=== PATIENT | male | born 1990 | race Caucasian/White ===

== ENCOUNTER 2017-04-01 21:19 | Emergency (ER) | payer OTHER ==
[2017-04-01] MEDS ORDERED: Sodium Chloride 0.9% 1,000 ML IV ONE (21:59)
[2017-04-01] MEDS ORDERED: Alum Hydroxide/Mag Hydroxide 30 ML, Lidocaine 2% 30 ML PO ONE ×2 (22:01)
[2017-04-01] MEDS ORDERED: Ondansetron 4 MG/2 ML SDV IVPUSH ONE (22:03)
--- NOTE | 2017-04-01 22:08 | EDM.PDOC ---
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, not around anyone who has been ill Right sided chest pain Pain Score (Numeric/FACES): 5 - Related Data Allergies Allergy/AdvReac Type Severity Reaction Status Date / Time No Known Allergies Allergy Verified 04/01/17 21:47 Home Meds: Home Meds NK [No Known Home Meds] 03/03/13 [History] Past Medical History Respiratory History: Reports: Asthma Musculoskeletal History: Reports: Fracture Social & Family History - Tobacco Use Smoking Status *Q: Current Every Day Smoker Years of Tobacco use: 8 Packs/Tins Daily: 1 Second Hand Smoke Exposure: Yes - Caffeine Use Caffeine Use: Reports: Soda - Alcohol Use Days Per Week of Alcohol Use: 0 - Recreational Drug Use Recreational Drug Use: No ED ROS GENERAL - Review of Systems Review Of Systems: See Below Constitutional: Reports: Decreased Appetite. Denies: Fever, Chills, Diaphoresis HEENT: Reports: No Symptoms Respiratory: Reports: No Symptoms Cardiovascular: Reports: No Symptoms Endocrine: Reports: No Symptoms GI/Abdominal: Reports: Abdominal Pain, Diarrhea, Nausea, Vomiting : Reports: No Symptoms Musculoskeletal: Reports: No Symptoms Skin: Reports: No Symptoms Neurological: Reports: No Symptoms Psychiatric: Reports: No Symptoms Hematologic/Lymphatic: Reports: No Symptoms Immunologic: Reports: No Symptoms ED EXAM, GI/ABD - Physical Exam Exam: See Below Exam Limited By: No Limitations General Appearance: Alert, WD/WN, No Apparent Distress Ears: Normal External Exam, Normal Canal, Hearing Grossly Normal Nose: Normal Inspection, Normal Mucosa, No Blood Throat/Mouth: Normal Inspection, Normal Lips, Normal Teeth, Normal Gums, Normal Oropharynx, Normal Voice, No Airway Compromise, Other (cheeks flushed) Head: Atraumatic, Normocephalic Neck: Normal Inspection, Supple, Non-Tender, Full Range of Motion Respiratory/Chest: No Respiratory Distress, Lungs Clear, Normal Breath Sounds, No Accessory Muscle Use, Chest Non-Tender Cardiovascular: Regular Rate, Rhythm, No Edema, No Gallop, No Murmur, No Rub GI/Abdominal Exam: Normal Bowel Sounds, Soft, Non-Tender, No Organomegaly, No Distention, No Mass Back Exam: Normal Inspection, Full Range of Motion, NT Extremities: Normal Inspection, Normal Range of Motion, Non-Tender, No Pedal Edema Neurological: Alert, Oriented, CN II-XII Intact, Normal Cognition, No Motor/ Sensory Deficits Psychiatric: Normal Affect, Normal Mood Skin Exam: Warm, Dry, Intact, Normal Color, No Rash Lymphatic: No Adenopathy Course - Vital Signs Last Recorded V/S: Last Vital Signs Temp 36.8 C 04/01/17 21:24 Pulse 109 H 04/01/17 21:24 Resp 22 H 04/01/17 21:24 BP 155/91 H 04/01/17 21:24 Pulse Ox 97 04/01/17 21:24 - Orders/Labs/Meds Orders: Active Orders 24 hr Category Date Time Status EKG Documentation Completion [RC] ASDIRECTED Care 04/01/17 22:01 Active Sodium Chloride 0.9% [Normal Saline] 1,000 ml Med 04/01/17 21:59 Active IV .BOLUS Sodium Chloride 0.9% [Saline Flush] Med 04/01/17 22:16 Active 10 ml FLUSH ASDIRECTED PRN Saline Lock Insert [OM.PC] Routine Oth 04/01/17 22:16 Ordered EKG 12 Lead [EK] Routine Ther 04/01/17 22:01 Ordered Medication Orders Sodium Chloride (Normal Saline) 1,000 mls @ 999 mls/hr IV .BOLUS ONE Stop: 04/01/17 22:59 Last Admin: 04/01/17 22:22 Dose: 999 mls/hr Sodium Chloride (Saline Flush) 10 ml FLUSH ASDIRECTED PRN PRN Reason: Keep Vein Open Last Admin: 04/01/17 22:17 Dose: 10 ml Labs: Laboratory Tests 04/01/17 04/01/17 04/01/17 Range/Units 22:18 22:18 22:18 WBC 7.7 (4.5-12.0) X10-3/uL RBC 5.39 (4.30-5.75) x10(6)uL Hgb 15.7 H (11.5-15.5) g/dL Hct 46.2 (30.0-51.3) % MCV 85.7 (80-96) fL MCH 29.2 (27.7-33.6) pg MCHC 34.1 (32.2-35.4) g/dL RDW 12.9 (11.5-15.5) % Plt Count 201 (125-369) X10(3)uL MPV 9.0 (7.4-10.4) fL Neut % (Auto) 76.6 (46-82) % Lymph % (Auto) 16.9 (13-37) % Yell % (Auto) 4.5 (4-12) % Eos % (Auto) 1 (1.0-5.0) % Baso % (Auto) 1 (0-2) % Neut # (Auto) 5.9 (1.6-8.3) # Lymph # (Auto) 1.3 (0.6-5.0) # Yell # (Auto) 0.3 (0.0-1.3) # Eos # (Auto) 0.1 (0.0-0.8) # Baso # (Auto) 0.1 (0.0-0.2) # Sodium 138 (135-145) mmol/L Potassium 3.4 L (3.5-5.3) mmol/L Chloride 100 (100-110) mmol/L Carbon Dioxide 27 (21-32) mmol/L BUN 9 (7-18) mg/dL Creatinine 1.0 (0.70-1.30) mg/dL Est Cr Clr Drug Dosing TNP Estimated GFR (MDRD) > 60 (>60) BUN/Creatinine Ratio 9.0 (9-20) Glucose 105 (80-116) mg/dL Calcium 8.9 (8.6-10.2) mg/dL Total Bilirubin 0.9 (0.1-1.3) mg/dL AST 48 H (5-25) IU/L ALT 118 H (12-36) U/L Alkaline Phosphatase 76 (56-112) IU/L Troponin I < 0.017 L (<0.017-0.056) ng/mL Total Protein 7.7 (6.0-8.0) g/dL Albumin 3.4 L (3.5-5.2) g/dL Globulin 4.3 g/dL Albumin/Globulin Ratio 0.8 Amylase 25 (25-115) U/L Meds: Medications Generic Name Dose Route Start Last Admin Trade Name Mayoq PRN Reason Stop Dose Admin Sodium Chloride 1,000 mls @ 999 mls/hr 04/01/17 21:59 04/01/17 22:22 Normal Saline IV 04/01/17 22:59 999 mls/hr .BOLUS ONE Administration Sodium Chloride 10 ml 04/01/17 22:16 04/01/17 22:17 Saline Flush FLUSH 10 ml ASDIRECTED PRN Administration Keep Vein Open Discontinued Medications Generic Name Dose Route Start Last Admin Trade Name Freq PRN Reason Stop Dose Admin Al Hydroxide/Mg Hydroxide 30 0 ml 04/01/17 22:01 04/01/17 22:23 ml/ Lidocaine HCl 30 ml PO 04/01/17 22:02 30 ml ONETIME ONE Administration Ondansetron HCl 4 mg 04/01/17 22:03 04/01/17 22:23 Zofran IVPUSH 04/01/17 22:04 4 mg ONETIME ONE Administration Potassium Chloride 40 meq 04/01/17 22:50 04/01/17 22:56 Klor-Con M20 PO 04/01/17 22:51 40 meq ONETIME ONE Administration - Re-Assessments/Exams Free Text/Narrative Re-Assessment/Exam: 04/01/17 22:57 decrease HR with IVF, feeling better, rare alc, smokes cigs, no THC, no street drugs does not need a note for work has upper and lower GI sxs c/w viral gastroenteritis EKG and troponin neg Departure - Departure Time of Disposition: 23:00 Disposition: Home, Self-Care 01 Condition: Good Clinical Impression: Viral gastroenteritis, Hypokalemia, Elevated liver function tests - Discharge Information Instructions: Viral Gastroenteritis, Adult Referrals: Aroldo Turner MD [Primary Care Provider] - Forms: ED Department Discharge Additional Instructions: Rest for another day. Increase your fluids. Use liquid antacids 30 cc every 4 hours as needed for GI upset. See your doctor in 2 days. You have an increase in your liver function tests which you will want to discuss with your physician. Return to ED if you are feeling worse. Call your Physician or Return to Emergency Department if: * Your condition worsens in any way. * You develop fever greater than 100.4. * You have vomitting that does not stop with medications. * You have pain that is not controlled with medications. - My Orders Last 24 Hours: My Active Orders 04/01/17 21:59 Sodium Chloride 0.9% [Normal Saline] 1,000 ml IV .BOLUS 04/01/17 22:01 EKG Documentation Completion [RC] ASDIRECTED EKG 12 Lead [EK] Routine 04/01/17 22:16 Sodium Chloride 0.9% [Saline Flush] 10 ml FLUSH ASDIRECTED PRN Saline Lock Insert [OM.PC] Routine - Assessment/Plan Last 24 Hours: My Active Orders 04/01/17 21:59 Sodium Chloride 0.9% [Normal Saline] 1,000 ml IV .BOLUS 04/01/17 22:01 EKG Documentation Completion [RC] ASDIRECTED EKG 12 Lead [EK] Routine 04/01/17 22:16 Sodium Chloride 0.9% [Saline Flush] 10 ml FLUSH ASDIRECTED PRN Saline Lock Insert [OM.PC] Routine
[2017-04-01] MEDS ORDERED: Sodium Chloride 0.9% 10 ML Syringe FLUSH PRN (22:16)
[2017-04-01] MEDS ORDERED: Potassium Chloride 20 MEQ Tab.ER PO ONE (22:50)
[2017-04-01 23:24] VITALS: BP 152/83
== END 2017-04-01 23:38 | disposition home or self-care (01) ==
LOC: FB.ED 21:19
DX: A08.4 Viral intestinal infection, unspecified (principal); E87.6 Hypokalemia; R79.89 Other specified abnormal findings of blood chemistry; F17.210 Nicotine dependence, cigarettes, uncomplicated
CPT/HCPCS: 36415; 80053; 82150; 84484; 85025; 93005; 96361; 96374; 99285; A9270; J2405; J7040; J7050

== ENCOUNTER 2017-06-15 16:40 | Emergency (ER) | payer OTHER ==
[2017-06-15] MEDS ORDERED: Ketorolac 60 MG/2 ML SDV IM ONE (17:32)
--- NOTE | 2017-06-15 17:51 | EDM.PDOC ---
ED HPI GENERAL MEDICAL PROBLEM - General Chief Complaint: Upper Extremity Injury/Pain Stated Complaint: RIGHT WRIST Time Seen by Provider: 06/15/17 16:49 Source of Information: Reports: Patient, Family (mom) History Limitations: Reports: No Limitations - History of Present Illness INITIAL COMMENTS - FREE TEXT/NARRATIVE: 27 y.o.w.m came with his mom to the ed after her son slipped on ice and injured his right wrist. Pt wrist was deformed and painful to palpating and movement. CAP refil was < 2 sec. Pt denied numbness. Pt denied any other acute medical issues BP 152/97 Pulse 102 RR 20 Temp 36.8 Pulse ox 98% on RA Onset: Today Onset Date: 06/15/17 Onset Time: 15:00 Duration: Hour(s): Location: Reports: Upper Extremity, Right Quality: Reports: Ache Severity: Mild Improves with: Reports: Rest Worsens with: Reports: Movement Right Wrist Pain Score (Numeric/FACES): 4 - Related Data Allergies Allergy/AdvReac Type Severity Reaction Status Date / Time No Known Allergies Allergy Verified 06/15/17 16:47 Home Meds: Home Meds NK [No Known Home Meds] 03/03/13 [History] Past Medical History - Past Health History Medical/Surgical History: Denies Medical/Surgical History Respiratory History: Reports: Asthma Musculoskeletal History: Reports: Fracture Endocrine/Metabolic History: Reports: Obesity/BMI 30+ - Past Surgical History Endocrine Surgical History: Reports: None Social & Family History - Family History Family Medical History: Noncontributory - Tobacco Use Smoking Status *Q: Current Every Day Smoker Years of Tobacco use: 4 Packs/Tins Daily: 1 Second Hand Smoke Exposure: Yes - Caffeine Use Caffeine Use: Reports: Soda - Alcohol Use Days Per Week of Alcohol Use: 0 - Recreational Drug Use Recreational Drug Use: No Review of Systems - Review of Systems Review Of Systems: See Below Constitutional: Reports: No Symptoms Eyes: Reports: No Symptoms Ears: Reports: No Symptoms Nose: Reports: No Symptoms Mouth/Throat: Reports: No Symptoms Respiratory: Reports: No Symptoms Cardiovascular: Reports: No Symptoms GI/Abdominal: Reports: No Symptoms Genitourinary: Reports: No Symptoms Musculoskeletal: Reports: Joint Pain (wrist) Skin: Reports: No Symptoms Neurological: Reports: No Symptoms Psychiatric: Reports: No Symptoms ED EXAM, GENERAL - Physical Exam Exam: See Below Exam Limited By: No Limitations General Appearance: Alert, WD/WN, Mild Distress Eye Exam: Bilateral Eye: Normal Inspection Ears: Normal External Exam Ear Exam: Bilateral Ear: Auricle Normal Nose: Normal Inspection, Normal Mucosa Throat/Mouth: Normal Inspection, Normal Lips Head: Atraumatic, Normocephalic Neck: Normal Inspection, Supple, Non-Tender, Full Range of Motion Respiratory/Chest: No Respiratory Distress, Lungs Clear, Normal Breath Sounds, No Accessory Muscle Use, Chest Non-Tender Cardiovascular: Normal Peripheral Pulses, Regular Rate, Rhythm, No Edema, No Gallop, No Murmur, No Rub Peripheral Pulses: 2+: Brachial (L) GI/Abdominal: Normal Bowel Sounds, Soft (Male) Exam: Deferred Rectal (Males) Exam: Deferred Back Exam: Normal Inspection, Full Range of Motion Extremities: Normal Capillary Refill, Limited Range of Motion (right wrist/ wrist deformity) Neurological: Alert, Oriented, CN II-XII Intact, Normal Cognition, No Motor/ Sensory Deficits Psychiatric: Normal Affect, Normal Mood Skin Exam: Warm, Dry, Intact, Normal Color, No Rash Lymphatic: No Adenopathy ED TRAUMA EXTREMITY PROCEDURES - Splinting Right Upper Extremity Pre-Procedure NV Status: Normal Post-Procedure NV Status: Normal Splint Material: Plaster Splint Design: Posterior Applied & Form Fitted By: Provider Provider Post-Splint Application NV Check: NV Status Normal Complications: No Course - Vital Signs Text/Narrative:: 27 y.o.w.m came with his mom to the ed after her son slipped on ice and injured his right wrist. Pt wrist was deformed and painful to palpating and movement. CAP refil was < 2 sec. Pt denied numbness. Pt denied any other acute medical issues BP 152/97 Pulse 102 RR 20 Temp 36.8 Pulse ox 98% on RA PE: Deformed right wrist Imaging: Transcaphoid/perilunate dislication, scaphoid waist comminuted fx, official report is pending Procedure: Please see note above Impression: Comminuted wrist fx with dislocation Tx: Toradol, ICE splint 5.10 pm Consultation: Dr Alarcon, [facility], [facility]: Needs to be reduced: transfer to [facility] ED, may need to go to OR, NPO till seen at [facility]. Reexam: improved, pt felt tingling at his finger tips before splint was applied Plan: Transfer to the ED [facility] with family (mom) to [facility] ED to see Ortho for wrist reduction. Last Recorded V/S: Last Vital Signs Temp 36.6 C 06/15/17 18:17 Pulse 87 06/15/17 18:17 Resp 18 06/15/17 18:17 BP 149/87 H 06/15/17 18:17 Pulse Ox 100 06/15/17 18:17 - Orders/Labs/Meds Orders: Active Orders 24 hr Category Date Time Status Cooling Warming Measures [RC] ASDIRECTED Care 06/15/17 17:33 Active Wrist Comp Min 3V Rt [CR] Stat Exams 06/15/17 16:46 Taken Ice Bag [Ice Therapy] [OM.PC] Routine Oth 06/15/17 17:33 Ordered Meds: Medications Discontinued Medications Generic Name Dose Route Start Last Admin Trade Name Freq PRN Reason Stop Dose Admin Ketorolac Tromethamine 60 mg 06/15/17 17:32 06/15/17 17:36 Toradol IM 06/15/17 17:33 60 mg ONETIME ONE Administration Departure - Departure Time of Disposition: 18:14 Disposition: DC/Tfer to Other 70 Condition: Fair Clinical Impression: Wrist fracture, closed Qualifiers: Encounter type: initial encounter Laterality: right Qualified Code(s): S62.101A - Fracture of unspecified carpal bone, right wrist, initial encounter for closed fracture - Discharge Information Referrals: Aroldo Turner MD [Primary Care Provider] - Forms: ED Department Discharge Additional Instructions: Please go straight to the ED and ask for Dr. Usha [facility], Nothing by mouth till seen by Ortho. - My Orders Last 24 Hours: My Active Orders 06/15/17 16:46 Wrist Comp Min 3V Rt [CR] Stat 06/15/17 17:33 Cooling Warming Measures [RC] ASDIRECTED Ice Bag [Ice Therapy] [OM.PC] Routine - Assessment/Plan Last 24 Hours: My Active Orders 06/15/17 16:46 Wrist Comp Min 3V Rt [CR] Stat 06/15/17 17:33 Cooling Warming Measures [RC] ASDIRECTED Ice Bag [Ice Therapy] [OM.PC] Routine
[2017-06-15 18:18] VITALS: BP 149/87
== END 2017-06-15 18:18 | disposition other institution (70) ==
LOC: FB.ED 16:40
DX: S62.001A Unspecified fracture of navicular [scaphoid] bone of right wrist, initial encounter for closed fracture (principal); F17.210 Nicotine dependence, cigarettes, uncomplicated; J45.909 Unspecified asthma, uncomplicated; E66.9 Obesity, unspecified; W00.0XXA Fall on same level due to ice and snow, initial encounter
CPT/HCPCS: 29125; 73110-RT; 96374; 99285; J1885

== ENCOUNTER 2019-11-23 08:02 | Day surgery (SDC) | payer MEDICAID ==
[2019-11-23] MEDS ORDERED: Propofol 200 MG/20 ML SDV IV ONE (08:03)
[2019-11-23] MEDS ORDERED: Lidocaine 1% PF 2 ML SDV IV ONE (08:03)
[2019-11-23] MEDS ORDERED: Sodium Chloride 0.9% 10 ML Syringe FLUSH PRN (09:30)
[2019-11-23] MEDS ORDERED: Lactated Ringers 1,000 ML IV SCH (09:30)
--- NOTE | 2019-11-23 10:15 | PCM.HPR ---
H & P Addendum review - H & P Addendum Review Date of Original H & P: 11/09/19 Date Reviewed: 11/23/19 Time Reviewed: 09:30 Patient was Examined: No Changes
[2019-11-23 10:58] VITALS: BP 144/88; PULSE 70
--- NOTE | 2019-11-24 13:43 | OR ---
DATE OF OPERATION: 11/23/2019 SURGEON: Osman Hebert MD PREOPERATIVE DIAGNOSES: 1. Abdominal pain with weight loss. 2. Chronic diarrhea. 3. Abnormal CT scan of the pelvis. POSTOPERATIVE DIAGNOSIS: Severe colitis of the distal sigmoid colon. PROCEDURE: Incomplete colonoscopy to the sigmoid colon with biopsy. ANESTHESIA: IV sedation. HISTORY: This 29-year-old male was recently seen by Chio Birch for evaluation of the above symptoms. His CT scan is concerning and that there was ascites in the pelvis along with gas bubbles in the bladder. The patient tells me when he urinates he does pass some foam at times. This would be concerning for a colovesicular fistula. I met with him prior to the procedure to review the risks and complications and informed consent was obtained. DESCRIPTION OF PROCEDURE: The patient was brought to the procedure room, where he was placed on his left side and IV sedation administered. Digital rectal exam was performed, which was normal. The colonoscope was inserted into a normal-appearing rectum. Retroflexion was also normal. As soon as I got to the rectosigmoid junction, there was severe circumferential inflammation and I could see milky white purulent drainage coming from between the folds. There was no bleeding. I was unable to identify a lumen past 20 cm with all the swelling and inflammation. I did take 3 biopsies randomly from the sigmoid colon. I also took 2 biopsies from the rectum. Air was removed and the scope withdrawn. The patient tolerated the procedure well and returned to Recovery in stable condition. CC: Bryanna Birch APRN, NICHOLAS [address] [address] /[phone] [id number] TRACY/ITA
== END 2019-11-23 11:06 | disposition home or self-care (01) ==
LOC: FB.SDS 08:02
PROVIDERS: ATTEND Surgery
DX: D12.7 Benign neoplasm of rectosigmoid junction (principal); K52.9 Noninfective gastroenteritis and colitis, unspecified; J45.909 Unspecified asthma, uncomplicated; F17.210 Nicotine dependence, cigarettes, uncomplicated; F41.9 Anxiety disorder, unspecified; N30.01 Acute cystitis with hematuria; G89.29 Other chronic pain; M54.5 Low back pain; K21.9 Gastro-esophageal reflux disease without esophagitis; E66.3 Overweight; Z68.30 Body mass index [BMI] 30.0-30.9, adult
CPT/HCPCS: 00811; 45380; 88305; J2001; J2704; J7120

== ENCOUNTER 2019-12-13 08:02 | Emergency (ER) | payer MEDICAID ==
[2019-12-13 08:28] VITALS: BP 143/84; PULSE 102
--- NOTE | 2019-12-13 08:44 | EDM.PDOC ---
ED HPI GENERAL MEDICAL PROBLEM - General Chief Complaint: Genitourinary Problem Stated Complaint: CATH ISSUES Time Seen by Provider: 12/13/19 08:40 Source of Information: Reports: Patient History Limitations: Reports: No Limitations - History of Present Illness INITIAL COMMENTS - FREE TEXT/NARRATIVE: 29-year-old male who has had an indwelling Cline catheter since 11/26/2019 reports that at approximately 2 AM today he awoke with the feeling that he needed to urinate and had some pain and pressure in his lower abdomen. He reports that he noted that the catheter was not draining and he attempted to squeeze the tubing to no avail and he reports that the pressure seem to build and he had leakage around the Cline catheter of urine. He presents here daily for outpatient antibiotic therapy and today was his last stay for this and when he presented he conveyed to the nurse that he was having problems with his Cline catheter draining and she did a bladder scan which showed 360 mL and she then irrigated the Cline catheter with approximately 10 mL of normal saline and the Cline catheter then begin to drain and the patient felt immediate relief following this. The patient now reports he has essentially 0/10 pain and discomfort in his suprapubic area and the Cline catheter is draining well. The urine is somewhat dark but essentially non-cloudy. The patient has had no fevers or chills. He has had no nausea or vomiting. He is supposed to be following up with the urologist tomorrow. There are no other associated signs or symptoms. There are no other modifying factors. Onset: Today (Deep) Duration: Getting Worse Location: Reports: Abdomen (And penis.) Quality: Reports: Pressure, Sharp Severity: Moderate (to severe initially but now at a 0/10.) Improves with: Reports: None Worsens with: Reports: Other (Palpation of his lower abdomen) Context: Reports: Other (As above) Associated Symptoms: Reports: No Other Symptoms Treatments SUPERSONIC ENGINEER: Reports: Other (see below) Bladder Pain Score (Numeric/FACES): 5 - Related Data Allergies Allergy/AdvReac Type Severity Reaction Status Date / Time No Known Allergies Allergy Verified 11/23/19 08:16 Home Meds: Home Meds Ibuprofen [Advil] 600 mg PO Q6H PRN 11/22/19 [History] Saccharomyces Boulardii [Probiotic] 250 mg PO DAILY 11/22/19 [History] Acetaminophen [Tylenol] 325 mg PO PRN 12/13/19 [History] Oxybutynin 2.5 mg PO DAILY 12/13/19 [History] oxyCODONE 2.5 mg PO DAILY 12/13/19 [History] Past Medical History Respiratory History: Reports: Asthma Gastrointestinal History: Reports: Other (See Below) (Colitis) - Past Surgical History HEENT Surgical History: Reports: Oral Surgery (Orthodontic type surgery) Other Musculoskeletal Surgeries/Procedures:: CLOSED TRANSSCAPHOID-PERILUNATE FRACTURE; DISLOCATION OF RIGHT WRIST WITH ROUTINE HEALING Social & Family History - Tobacco Use Smoking Status *Q: Current Every Day Smoker - Caffeine Use Caffeine Use: Reports: Soda - Alcohol Use Alcohol Use History: Yes Alcohol Use Frequency: Socially - Living Situation & Occupation Social History Comment: He is here with his mother today. ED ROS GENERAL - Review of Systems Review Of Systems: See Below Constitutional: Reports: No Symptoms HEENT: Reports: No Symptoms Respiratory: Reports: No Symptoms Cardiovascular: Reports: No Symptoms GI/Abdominal: Reports: Abdominal Pain (Pressure in his suprapubic area and the feeling that he needs to urinate.) : Reports: Urinary Retention, Other (Cline catheter not draining. Some leakage around the Cline catheter from the penis.) Musculoskeletal: Reports: No Symptoms Skin: Reports: No Symptoms Neurological: Reports: No Symptoms Hematologic/Lymphatic: Reports: No Symptoms Immunologic: Reports: No Symptoms ED EXAM, RENAL/ - Physical Exam Exam: See Below Exam Limited By: No Limitations General Appearance: Alert, WD/WN, No Apparent Distress, Other (Should be noted that the patient is seen after his Cline catheter was irrigated and the Cline catheter is draining normally now.) Eye Exam: Bilateral Eye: EOMI, Normal Inspection Ears: Normal External Exam, Hearing Grossly Normal Nose: Normal Inspection, Normal Mucosa, No Blood Throat/Mouth: Normal Inspection, Normal Oropharynx, Normal Voice, No Airway Compromise Head: Atraumatic, Normocephalic Neck: Normal Inspection, Supple, Non-Tender, Full Range of Motion Respiratory/Chest: No Respiratory Distress, Lungs Clear, Normal Breath Sounds, No Accessory Muscle Use, Chest Non-Tender Cardiovascular: Normal Peripheral Pulses, Regular Rate, Rhythm, No Murmur GI/Abdominal: Normal Bowel Sounds, Soft, Non-Tender, No Mass (Male) Exam: Other (Cline catheter in place) Back Exam: Normal Inspection, Full Range of Motion Extremities: Normal Inspection, Normal Range of Motion, Non-Tender, Normal Capillary Refill, No Pedal Edema Neurological: Alert, Oriented, CN II-XII Intact, Normal Cognition, No Motor/Sensory Deficits Psychiatric: Normal Affect Skin Exam: Warm, Dry, Intact, Normal Color, No Rash Course - Vital Signs Last Recorded V/S: Last Vital Signs Temp 36.6 C 12/13/19 08:26 Pulse 102 H 12/13/19 08:26 Resp 18 12/13/19 08:26 BP 143/84 H 12/13/19 08:26 Pulse Ox 100 12/13/19 08:26 - Re-Assessments/Exams Free Text/Narrative Re-Assessment/Exam: 12/13/19 08:45: Patient's Cline catheter was irrigated by the nurse with a small amount of normal saline and giving this drained completely. The patient felt much improved after this. On my exam he has a nontender abdomen and he has a functioning Cline catheter. Nothing further needs to be done this time. He is to follow-up with urology tomorrow. He should continue with the Cline catheter care as previous and keep his urology appointment tomorrow. Departure - Departure Time of Disposition: 08:52 Disposition: Home, Self-Care 01 Condition: Good (Improved) Clinical Impression: Urinary retention Cline catheter problem Qualifiers: Encounter type: initial encounter Qualified Code(s): T83.9XXA - Unspecified complication of genitourinary prosthetic device, implant and graft, initial encounter - Discharge Information Instructions: Indwelling Urinary Catheter Care, Adult Referrals: Ryan Salcido PA [Primary Care Provider] - Forms: ED Department Discharge Additional Instructions: Continue to drink plenty of fluids. Continue care of your Cline catheter as you have been doing. Keep your follow-up appointment with the urologist tomorrow. Back to the emergency department for increasing pain, fever, unrelenting vomiting, Cline catheter not working or any other concerning sign or symptom. Sepsis Event Note (ED) - Evaluation Sepsis Screening Result: No Definite Risk - Focused Exam Vital Signs: Vital Signs Temp Pulse Resp BP Pulse Ox 12/13/19 08:26 36.6 C 102 H 18 143/84 H 100
== END 2019-12-13 09:00 | disposition home or self-care (01) ==
LOC: FB.ED 08:02
DX: T83.098A Other mechanical complication of other urinary catheter, initial encounter (principal); R33.9 Retention of urine, unspecified; J45.909 Unspecified asthma, uncomplicated; F17.200 Nicotine dependence, unspecified, uncomplicated
CPT/HCPCS: 51798; 99284

== ENCOUNTER 2019-12-13 19:05 | Emergency (ER) | payer MEDICAID ==
[2019-12-13] MEDS ORDERED: Sulfamethoxazole/Trimethoprim 800-160 MG Tab PO STA (19:44)
--- NOTE | 2019-12-13 19:44 | EDM.PDOC ---
ED HPI GENERAL MEDICAL PROBLEM - General Stated Complaint: CATH Time Seen by Provider: 12/13/19 19:05 Source of Information: Reports: Patient History Limitations: Reports: No Limitations - History of Present Illness INITIAL COMMENTS - FREE TEXT/NARRATIVE: Patient presented to the ED because of a clogged elam and possible UTI. There is no fever chills, N/V/D. NO cough and cold Bladder Pain Score (Numeric/FACES): 7 - Related Data Allergies Allergy/AdvReac Type Severity Reaction Status Date / Time No Known Allergies Allergy Verified 12/13/19 10:07 Home Meds: Home Meds Ibuprofen [Advil] 600 mg PO Q6H PRN 11/22/19 [History] Saccharomyces Boulardii [Probiotic] 250 mg PO DAILY 11/22/19 [History] Acetaminophen [Tylenol] 325 mg PO PRN 12/13/19 [History] Oxybutynin 2.5 mg PO DAILY 12/13/19 [History] Sulfamethoxazole/Trimethoprim [Bactrim Ds Tablet] 1 each PO BID #14 tablet 12/13/19 [Rx] oxyCODONE 2.5 mg PO DAILY 12/13/19 [History] Past Medical History - Past Health History Medical/Surgical History: Denies Medical/Surgical History Respiratory History: Reports: Asthma Gastrointestinal History: Reports: Other (See Below) (Colitis) Other Gastrointestinal History: colitis, colon perf Other Genitourinary History: elam catheter placed 11/26/19 Urology Musculoskeletal History: Reports: Other (See Below) Endocrine/Metabolic History: Reports: Obesity/BMI 30+ - Past Surgical History HEENT Surgical History: Reports: Oral Surgery (Orthodontic type surgery) Other Musculoskeletal Surgeries/Procedures:: CLOSED TRANSSCAPHOID-PERILUNATE FRACTURE; DISLOCATION OF RIGHT WRIST WITH ROUTINE HEALING Social & Family History - Family History Family Medical History: Noncontributory - Caffeine Use Caffeine Use: Reports: Soda ED ROS GENERAL - Review of Systems Review Of Systems: See Below Constitutional: Reports: No Symptoms HEENT: Reports: No Symptoms Respiratory: Reports: No Symptoms Cardiovascular: Reports: No Symptoms Endocrine: Reports: No Symptoms GI/Abdominal: Reports: No Symptoms : Denies: Flank Pain Musculoskeletal: Reports: No Symptoms Skin: Reports: No Symptoms ED EXAM, GENERAL - Physical Exam Exam: See Below Exam Limited By: No Limitations General Appearance: Alert, No Apparent Distress Ears: Normal External Exam, Normal Canal, Hearing Grossly Normal Nose: Normal Inspection, Normal Mucosa, No Blood Throat/Mouth: Normal Inspection, Normal Lips, Normal Teeth Head: Atraumatic, Normocephalic Neck: Normal Inspection, Supple, Non-Tender Respiratory/Chest: No Respiratory Distress, Lungs Clear, Normal Breath Sounds Cardiovascular: Normal Peripheral Pulses, Regular Rate, Rhythm, No Edema, No Gallop GI/Abdominal: Normal Bowel Sounds, Soft, Non-Tender, No Organomegaly Back Exam: Normal Inspection, Full Range of Motion, Paraspinal Tenderness Extremities: Normal Range of Motion Course - Vital Signs Text/Narrative:: Elam was irrigated and is working again Start on Bactrim DS for UTI Last Recorded V/S: Last Vital Signs Temp 36.6 C 12/13/19 19:05 Pulse 130 H 12/13/19 19:05 Resp 18 12/13/19 19:05 BP 144/107 H 12/13/19 19:05 Pulse Ox 100 12/13/19 19:05 - Orders/Labs/Meds Meds: Medications Discontinued Medications Generic Name Dose Route Start Last Admin Trade Name Teddy PRN Reason Stop Dose Admin Trimethoprim/Sulfamethoxazole 1 tab 12/13/19 19:44 Septra Ds PO 12/13/19 19:45 NOW STA Departure - Departure Time of Disposition: 19:40 Disposition: Home, Self-Care 01 Condition: Good Clinical Impression: UTI (urinary tract infection), Elma catheter problem - Discharge Information Prescriptions: Sulfamethoxazole/Trimethoprim [Bactrim Ds Tablet] 1 each PO BID #14 tablet Instructions: Urinary Tract Infection, Adult, Indwelling Urinary Catheter Care, Adult, [id number] Referrals: Ryan Salcido PA [Primary Care Provider] - Forms: ED Department Discharge Additional Instructions: Please read discharge instructions on UTI and catheter problem Increase oral fluids Flush your catheter as needed Bactrim DS 1 tablet twice daily for 7 days Keep your appointment to see the Urologist tomorrow Sepsis Event Note (ED) - Evaluation Sepsis Screening Result: No Definite Risk - Focused Exam Vital Signs: Vital Signs Temp Pulse Resp BP Pulse Ox 12/13/19 19:05 36.6 C 130 H 18 144/107 H 100
[2019-12-13 20:56] VITALS: BP 146/94; PULSE 126
== END 2019-12-13 20:00 | disposition home or self-care (01) ==
LOC: FB.ED 19:05
DX: T83.098A Other mechanical complication of other urinary catheter, initial encounter (principal); N39.0 Urinary tract infection, site not specified; E66.9 Obesity, unspecified; Z68.28 Body mass index [BMI] 28.0-28.9, adult
CPT/HCPCS: 99283; A9270